=== PATIENT | female | born 1975 | race Caucasian/White ===

== ENCOUNTER → 2019-05-11 13:18 | Outpatient (CLI) | payer OTHER, SELFPAY ==
--- NOTE | ~2019-05-11 | MM_ITS ---
EXAMINATION: MM screening [facility] BI w stas HISTORY: Screening mammogram TECHNIQUE: Craniocaudal and mediolateral oblique 3-D tomosynthesis images were obtained and synthetic 2-D images were generated. CAD analysis was submitted and interpreted. COMPARISON: 07/25/2017 bilateral digital screening mammogram BREAST PARENCHYMAL COMPOSITION: The breasts are heterogeneously dense, which may obscure small masses . FINDINGS: There is no evidence of suspicious mass, calcification, or architectural distortion to sugg est malignancy in either breast. There has been no suspicious interval change. IMPRESSION: 1. No mammographic evidence of malignancy. 2. Recommend routine screening mammography in one year. BI-RADS Category 1: Negative Reviewed, dictated and finalized at location A. 3D ARTIST
== END ==
PROVIDERS: PCP Family Medicine; Visit Provider Family Medicine
DX: Z12.31 Encounter for screening mammogram for malignant neoplasm of breast (principal)
CPT/HCPCS: 77063; 77067

== ENCOUNTER → 2020-08-25 07:19 | Outpatient (CLI) | payer OTHER, SELFPAY ==
--- NOTE | ~2020-08-25 | MM_ITS ---
EXAMINATION: MM screening [facility] BI w stas HISTORY: Screening mammogram TECHNIQUE: Craniocaudal and mediolateral oblique 3-D tomosynthesis images were obtained and synthetic 2-D images were generated. Bilateral rotated lateral CC views. CAD analysis was submitted and interp reted. COMPARISON: 05/11/2019, 07/25/2017 bilateral digital screening mammogram examinations BREAST PARENCHYMAL COMPOSITION: The breasts are heterogeneously dense, which may obscure small masses . FINDINGS: There is no evidence of suspicious mass, calcification, or architectural distortion to sugg est malignancy in either breast. There has been no suspicious interval change. IMPRESSION: 1. No mammographic evidence of malignancy. 2. Recommend routine screening mammography in one year. BI-RADS Category 1: Negative Reviewed, dictated and finalized at location A.
== END ==
PROVIDERS: PCP Family Medicine; Visit Provider Family Medicine
DX: Z12.31 Encounter for screening mammogram for malignant neoplasm of breast (principal)
CPT/HCPCS: 77063; 77067

== ENCOUNTER 2021-05-04 13:24 | Emergency (ER) | payer OTHER, SELFPAY ==
--- NOTE | ~2021-05-04 | XR_ITS ---
EXAMINATION: XR humerus RT DATE: 05/04/2021 13:44 INDICATION: Right upper arm pain. TECHNIQUE: 2 views of right humerus were obtained. COMPARISON: None. FINDINGS: Bone alignment is normal. No fracture. Joint spaces are well maintained. IMPRESSION: 1. Normal right humerus. Reviewed, dictated and finalized at location E. ER BULK SYSTEM IMPRESSION: 1. Normal right humerus.
--- NOTE | 2021-05-04 13:31 | ED.UPPEXIN ---
HPI - Extremity Injury (Upper) General Chief Complaint: Extremity Injury, Upper Stated Complaint: Rt shoulder pain due to fall Time Seen by Provider: 05/04/21 13:32 Source: patient, RN notes reviewed and old records reviewed Mode of arrival: ambulatory Limitations: no limitations History of Present Illness HPI narrative: 46 year old female accompanied by spouse presents to express care with complaints of pain to her right upper humerus after slipping on ice while shoveling snow today. Patient reports that she did hear a pop and has pain in the upper right arm. Patient is right hand dominant. Patient is able to move elbow without difficulty and denies any pain to her right shoulder area. complaint: injury to: right and arm Onset (ago): hour(s) (1) Other Extremity Injury: Right: arm (upper right arm) Other injuries: none Handedness: right Place: home Severity: moderate Severity scale (1-10): 7 Exacerbating factors: other (palpation of area) Context: fall and direct blow Related Data Home Medications Medication Instructions Recorded Confirmed No Home Medications 05/04/21 05/04/21 Allergies Allergy/AdvReac Type Severity Reaction Status Date / Time No Known Allergies Allergy Verified 05/04/21 13:35 Review of Systems Review of Systems: CONSTITUTIONAL: Denies fever, chills, or sweats. EYES: Denies visual changes, redness, or discharge. ENT: Denies rhinorrhea, congestion, sore throat, or otalgia. CARDIOVASCULAR: Denies chest pain, palpitations, or edema. RESPIRATORY: Denies cough or dyspnea. GASTROINTESTINAL: Denies abdominal pain, nausea, vomiting, or diarrhea. GENITOURINARY: Denies dysuria or hematuria. SKIN: Denies rash or itching. MUSCULOSKELETAL: Denies back pain, pain right upper arm, or myalgia. NEUROLOGIC: Denies headache, numbness, or weakness. PSYCHIATRIC: Denies anxiety or depression. All systems reviewed & are unremarkable except as noted in HPI and below PMFSH Past Medical History Medical History (Updated 05/04/21 @ 14:15 by Felecia Odell NP) Strep throat as child Surgical History Surgical History (Updated 05/04/21 @ 16:05 by Felecia Odell NP) No history of previous surgery Family History Family History (Updated 05/04/21 @ 14:16 by Felecia Odell NP) Father Heart disease Grandparent Acute myocardial infarction Cancer Sibling Sarcoidosis Social History Social History (Updated 05/04/21 @ 14:17 by Felecia Odell NP) Smoking status: Never smoker Alcohol intake: current Alcohol use details: rare alcohol Substance use: never Living arrangements: with family Gender identity (if verbalized by the patient): Female Comments At time of signature, agree with nursing past medical, surgical, social and family history. There is no relevant family history pertinent to the presenting complaint Exam Narrative: GENERAL: Well-appearing, well-nourished, and in no acute distress. HEAD: Normocephalic, atraumatic. EYES: PERRLA and EOMI. ENT: Nares clear, no rhinorrhea or epistaxis. Mucous membranes moist.TM's normal with good light reflex, throat pink with no lesions or exudates no tonsil swelling NECK: Supple. no lymphadenopathy CHEST: Clear to auscultation. No respiratory distress.SAO2 100% on room air HEART: Regular rate and rhythm. No murmur heard. Normal peripheral pulses. ABDOMEN: Soft, nontender, nondistended, normal active bowel sounds. EXTREMITIES: Normal range of motion. No edema. Tenderness to right upper arm on palpation with minimal tissue swelling noted, no bruising related to fall onto ice while shoveling snow today. SKIN: Warm, dry, no rash. NEURO: No focal deficits. Alert and oriented x3. Course Course Level of Care: Express Care Visit Vital Signs Vital signs: Vital Signs Temperature 36.7 C 05/04/21 13:35 Pulse Rate 84 05/04/21 13:35 Respiratory Rate 18 05/04/21 13:35 Blood Pressure 115/74 05/04/21 13:35 Pulse Oximetry 100 02
[2021-05-04 13:35] VITALS: BP 115/74; PULSE 84; RESP 18; TEMP 36.7; O2SAT 100
== END 2021-05-04 14:03 | disposition home or self-care (01) ==
PROVIDERS: Emergency Provider Registered Nurse; PCP Family Medicine
DX: S40.021A Contusion of right upper arm, initial encounter (principal); W00.0XXA Fall on same level due to ice and snow, initial encounter
CPT/HCPCS: 73060; 99203; G0463

== ENCOUNTER → 2021-11-16 10:43 | Outpatient (CLI) | payer OTHER, SELFPAY ==
--- NOTE | ~2021-11-16 | MM_ITS ---
EXAMINATION: MM screening [facility] BI w stas HISTORY: Screening mammogram TECHNIQUE: Craniocaudal and mediolateral oblique 3-D tomosynthesis images were obtained and synthetic 2-D images were generated. Bilateral rotated lateral CC views. CAD analysis was submitted and interp reted. COMPARISON: 08/25/2020, , 07/25/2017 bilateral screening mammogram examinations BREAST PARENCHYMAL COMPOSITION: The breasts are heterogeneously dense, which may obscure small masses . FINDINGS: There is no evidence of suspicious mass, calcification, or architectural distortion to sugg est malignancy in either breast. There has been no suspicious interval change. IMPRESSION: 1. No mammographic evidence of malignancy. 2. Recommend routine screening mammography in one year. BI-RADS Category 1: Negative Reviewed, dictated and finalized at location A.
== END ==
PROVIDERS: PCP Family Medicine; Visit Provider Family Medicine
DX: Z12.31 Encounter for screening mammogram for malignant neoplasm of breast (principal)
CPT/HCPCS: 77063; 77067

== ENCOUNTER → 2022-12-10 07:14 | Outpatient (CLI) | payer OTHER, SELFPAY ==
--- NOTE | ~2022-12-10 | MM_ITS ---
EXAMINATION: MM screening mos[facility] BI w stas HISTORY: Screening TECHNIQUE: Craniocaudal and mediolateral oblique 3-D tomosynthesis images were obtained and synthetic 2-D images were generated. CAD analysis was submitted and interpreted. COMPARISON: 11/16/2021, 08/25/2020, 05/11/2019 bilateral screening mammogram examinations BREAST PARENCHYMAL COMPOSITION: The breasts are heterogeneously dense, which may obscure small masses . FINDINGS: There is no evidence of suspicious mass, calcification, or architectural distortion to sugg est malignancy in either breast. There has been no suspicious interval change. IMPRESSION: 1. No mammographic evidence of malignancy. 2. Recommend routine screening mammography in one year. BI-RADS Category 1: Negative Reviewed, dictated and finalized at location A.
== END ==
PROVIDERS: PCP Family Medicine; Visit Provider Family Medicine
DX: Z12.31 Encounter for screening mammogram for malignant neoplasm of breast (principal)
CPT/HCPCS: 77063; 77067

== ENCOUNTER 2024-01-21 07:17 | Outpatient (CLI) | payer BC, SELFPAY ==
--- NOTE | ~2024-01-21 | MM_ITS ---
EXAMINATION: MM screening [facility] BI w stas HISTORY: Screening TECHNIQUE: Craniocaudal and mediolateral oblique 3-D tomosynthesis images were obtained and synthetic 2-D images were generated. CAD analysis was submitted and interpreted. COMPARISON: Comparison to multiple prior studies sequentially, with oldest reviewed study dated 07/25. BREAST PARENCHYMAL COMPOSITION: . Dense: The breasts are heterogeneously dense, which may obscure sma ll masses FINDINGS: There is no evidence of suspicious mass, calcification, or architectural distortion to sugg est malignancy in either breast. There has been no suspicious interval change. IMPRESSION: 1. No mammographic evidence of malignancy. 2. Recommend routine screening mammography in one year. BI-RADS Category 1: Negative Reviewed, dictated and finalized at location B.
== END 2024-01-21 07:18 | disposition home or self-care (01) ==
LOC: MICIMG 07:19
PROVIDERS: PCP Family Medicine; Visit Provider Family Medicine
DX: Z12.31 Encounter for screening mammogram for malignant neoplasm of breast (principal)
CPT/HCPCS: 77063; 77067

== ENCOUNTER 2025-01-26 07:23 | Outpatient (CLI) | payer BC, SELFPAY ==
--- NOTE | ~2025-01-26 | MM_ITS ---
EXAMINATION: MM screening [facility] BI w stas HISTORY: Screening TECHNIQUE: Craniocaudal and mediolateral oblique 3-D tomosynthesis images were obtained and synthetic 2-D images were generated. CAD analysis was submitted and interpreted. COMPARISON: Comparison to multiple prior studies sequentially, with oldest reviewed study dated 07/25/2017. BREAST PARENCHYMAL COMPOSITION: Dense: The breasts are heterogeneously dense, which may obscure small masses FINDINGS: There is no evidence of suspicious mass, calcification, or architectural distortion to suggest malignancy in either breast. There has been no suspicious interval change. IMPRESSION: 1. No mammographic evidence of malignancy. 2. Recommend routine screening mammography in one year. BI-RADS Category 1: Negative Reviewed, dictated and finalized at location B.
== END 2025-01-26 07:24 | disposition home or self-care (01) ==
LOC: MICIMG 07:23
PROVIDERS: PCP Family Medicine; Visit Provider Obstetrics & Gynecology
DX: Z12.31 Encounter for screening mammogram for malignant neoplasm of breast (principal); Z98.82 Breast implant status
CPT/HCPCS: 77063; 77067